=== PATIENT | male | born 1955 | race African-American/Black ===

== ENCOUNTER 2018-12-13 13:02 | Inpatient (IN) ==
[2018-12-13] MEDS ORDERED: ACETAMINOPHEN 325 MG TABLET PO PRN (15:51)
[2018-12-13] MEDS ORDERED: LACTULOSE 20 GM/30 ML UDCUP PO PRN (15:51)
[2018-12-13 16:05] LABS: Basophils % 0.2 % (0.0-0.8); Eosinophils # 0.1 10*3/uL (0.0-0.87); Eosinophils % 0.9 % (0.00-10.9); Hematocrit 34.7 VOL% (42.0-52.0); Immature Granulocytes % 0.4 %; Immature Granulocytes Absolute 0.02 #; Lymphocytes # 1.5 10*3/uL (1.4-4.0); Lymphocytes % 28.6 % (21.2-54.2); Mean Corpuscular HGB Conc 31.7 GM/DL (32-36); Mean Corpuscular Volume 81.6 FL (87-102); Mean Platelet Volume 10.7 FL (9.6-12.0); Neutrophils % 59.9 % (38.7-73.9); Platelet Count 305 T/CUMM (130-400); Red Blood Count 4.25 MC/CUMM (3.8-5.5); Red Cell Distribution Width 18.7 % (9.3-17.3); White Blood Count 5.4 T/CUMM (4-12)
[2018-12-13 16:17] LABS: Apearance,Urine CLEAR (Clear); Bilirubin,Urine Negative (Negative); Blood, Urine Negative (Negative); Glucose,Urine (UA) Negative (Negative); Ketones,Urine Negative (Negative); Mucus,Urine Occasional /LPF (Occasional); Nitrite,Urine Negative (Negative); Protein,Urine Negative; Urine Color Yellow (Yellow); Urine Specific Gravity 1.011 (1.001-1.035); Urine Urobilinogen < 2.0 EU/DL (0.2-1.0); WBC,Urine <1 /HPF (0-6)
[2018-12-13] MEDS ORDERED: DEXTROSE 50% 25 GM/50 ML VIAL IV PRN ×2 (16:17→19:03)
[2018-12-13] MEDS ORDERED: GLUCAGON 1 MG VIAL IM PRN (16:17)
[2018-12-13 16:24] LABS: Calcium 9.3 MG/DL (8.5-10.1); Osmolality,Calculated 278.4 MOS/KG (273-304); Risk Ratio 3.65; Thyroid Stimulating Hormone 1.37 uIU/ml (0.358-3.74); VLDL CHOLESTEROL 19.4 MG/DL
[2018-12-13] MEDS ORDERED: ENOXAPARIN 40 MG/0.4 ML SYRINGE SUBCUT SCH (17:30)
[2018-12-13] MEDS ORDERED: ONDANSETRON 4 MG/2 ML VIAL IV PRN (19:03)
[2018-12-13] MEDS: PENICILLIN G POTASSIUM INJ 4,000,000 UNIT in SODIUM CHLORIDE 0.9% 100 ML IV SCH ×2 (20:37→22:29)
[2018-12-13] MEDS: SODIUM CHLORIDE 0.9% 1,000 ML IV SCH (21:09)
[2018-12-13] MEDS: INSULIN LISPRO 100 UNIT/ML SUBCUT SCH ×3 (21:16→22:37)
[2018-12-14] MEDS: PENICILLIN G POTASSIUM INJ 4,000,000 UNIT in SODIUM CHLORIDE 0.9% 100 ML IV SCH ×6 (02:33→21:46)
[2018-12-14 05:25] LABS: Basophils % 0.1 % (0.0-0.8); Eosinophils # 0.1 10*3/uL (0.0-0.87); Hematocrit 33.1 VOL% (42.0-52.0); Hemoglobin 10.6 GM/DL (14.0-18.0); Immature Granulocytes % 0.6 %; Immature Granulocytes Absolute 0.04 #; Lymphocytes # 0.9 10*3/uL (1.4-4.0); Lymphocytes % 12.2 % (21.2-54.2); Mean Corpuscular Volume 80.9 FL (87-102); Mean Platelet Volume 10.2 FL (9.6-12.0); Monocytes % 9.7 % (1.7-12.7); Neutrophils % 76.4 % (38.7-73.9); Platelet Count 255 T/CUMM (130-400); Red Blood Count 4.09 MC/CUMM (3.8-5.5); Red Cell Distribution Width 18.4 % (9.3-17.3); White Blood Count 7.2 T/CUMM (4-12)
[2018-12-14 05:52] LABS: Albumin 3.3 G/DL (3.4-5.0); Bilirubin,Total 0.7 MG/DL (0.2-1.0); Calcium 8.8 MG/DL (8.5-10.1); Osmolality,Calculated 288.7 MOS/KG (273-304); Total Protein 7.4 G/DL (6.4-8.3)
[2018-12-14] MEDS: INSULIN LISPRO 100 UNIT/ML SUBCUT SCH ×6 (08:30→21:52)
[2018-12-14] MEDS ORDERED: INSULIN GLARGINE 100 UNIT/ML SUBCUT SCH (09:00)
[2018-12-14 09:13] LABS: Lymphocytes,CSF 72 %; Monocytes,CSF 13 %; Neutrophils,CSF 15 %; Red Blood Cell,CSF < 1 C/CUMM; White Blood Cell,CSF 117 C/CUMM
[2018-12-14 09:14] LABS: Appearance,CSF Clear
[2018-12-14 09:16] LABS: Glucose,CSF 45 MG/DL (40-70)
[2018-12-14] MEDS ORDERED: DEXTROSE 50% 25 GM/50 ML VIAL IV PRN (10:56)
[2018-12-14] MEDS: predniSONE 5 MG TABLET PO SCH (12:25)
[2018-12-14] MEDS: CETIRIZINE 10 MG TABLET PO SCH (12:26)
[2018-12-14] MEDS: PANTOPRAZOLE 40 MG TABLET PO SCH (12:26)
[2018-12-14 12:57] LABS: HIV Antigen/Antibody Result Nonreactive (Nonreactive)
[2018-12-14] MEDS: SODIUM CHLORIDE 0.9% 1,000 ML IV SCH (15:43)
[2018-12-15] MEDS: PENICILLIN G POTASSIUM INJ 4,000,000 UNIT in SODIUM CHLORIDE 0.9% 100 ML IV SCH ×6 (02:12→22:32)
[2018-12-15] MEDS: SODIUM CHLORIDE 0.9% 1,000 ML IV SCH ×2 (07:14→16:18)
[2018-12-15] MEDS: INSULIN LISPRO 100 UNIT/ML SUBCUT SCH ×4 (07:40→21:05)
[2018-12-15] MEDS: PANTOPRAZOLE 40 MG TABLET PO SCH (10:16)
[2018-12-15] MEDS: CETIRIZINE 10 MG TABLET PO SCH (10:16)
[2018-12-15] MEDS: INSULIN GLARGINE 100 UNIT/ML SUBCUT SCH (10:17)
[2018-12-15] MEDS: predniSONE 5 MG TABLET PO SCH (10:18)
[2018-12-15 13:36] LABS: CMV PCR Source CSF; Epstein-Barr Virus Result Negative (Negative); Epstein-Barr Virus Source CSF; Specimen Source CSF
[2018-12-15 15:06] LABS: VDRL Spinal Fluid Positive (Negative)
[2018-12-15] MEDS: GABAPENTIN 100 MG CAPSULE PO SCH (21:04)
[2018-12-16] MEDS: PENICILLIN G POTASSIUM INJ 4,000,000 UNIT in SODIUM CHLORIDE 0.9% 100 ML IV SCH ×6 (02:50→23:45)
[2018-12-16] MEDS: SODIUM CHLORIDE 0.9% 1,000 ML IV SCH ×2 (05:54→10:34)
[2018-12-16 08:29] LABS: Basophils % 0.3 % (0.0-0.8); Eosinophils # 0.1 10*3/uL (0.0-0.87); Eosinophils % 3.1 % (0.00-10.9); Hematocrit 34.6 VOL% (42.0-52.0); Hemoglobin 10.9 GM/DL (14.0-18.0); Immature Granulocytes % 0.3 %; Immature Granulocytes Absolute 0.01 #; Lymphocytes # 1.2 10*3/uL (1.4-4.0); Mean Corpuscular HGB Conc 31.5 GM/DL (32-36); Mean Corpuscular Volume 81.8 FL (87-102); Mean Platelet Volume 9.3 FL (9.6-12.0); Monocytes % 10.7 % (1.7-12.7); Neutrophils % 50.6 % (38.7-73.9); Platelet Count 240 T/CUMM (130-400); Red Blood Count 4.23 MC/CUMM (3.8-5.5); Red Cell Distribution Width 18.2 % (9.3-17.3); White Blood Count 3.5 T/CUMM (4-12)
[2018-12-16 08:49] LABS: Calcium 9.1 MG/DL (8.5-10.1); Osmolality,Calculated 282.8 MOS/KG (273-304)
[2018-12-16] MEDS: INSULIN LISPRO 100 UNIT/ML SUBCUT SCH ×4 (08:57→20:54)
[2018-12-16] MEDS: INSULIN GLARGINE 100 UNIT/ML SUBCUT SCH (09:36)
[2018-12-16] MEDS: GABAPENTIN 100 MG CAPSULE PO SCH ×2 (09:36→20:55)
[2018-12-16] MEDS: predniSONE 5 MG TABLET PO SCH (09:37)
[2018-12-16] MEDS: CETIRIZINE 10 MG TABLET PO SCH (09:37)
[2018-12-16] MEDS: PANTOPRAZOLE 40 MG TABLET PO SCH (09:37)
[2018-12-17] MEDS: SODIUM CHLORIDE 0.9% 1,000 ML IV SCH ×3 (01:25→17:12)
[2018-12-17] MEDS: PENICILLIN G POTASSIUM INJ 4,000,000 UNIT in SODIUM CHLORIDE 0.9% 100 ML IV SCH ×6 (03:14→21:32)
[2018-12-17] MEDS: INSULIN GLARGINE 100 UNIT/ML SUBCUT SCH (09:18)
[2018-12-17] MEDS: CETIRIZINE 10 MG TABLET PO SCH (09:19)
[2018-12-17] MEDS: predniSONE 5 MG TABLET PO SCH (09:19)
[2018-12-17] MEDS: GABAPENTIN 100 MG CAPSULE PO SCH ×2 (09:19→21:31)
[2018-12-17] MEDS: PANTOPRAZOLE 40 MG TABLET PO SCH (09:20)
[2018-12-17] MEDS: INSULIN LISPRO 100 UNIT/ML SUBCUT SCH ×4 (09:21→21:35)
[2018-12-17] MEDS: LACTOBACILLUS ACIDOPHILUS/BULGARICUS CAPLET PO SCH (11:43)
[2018-12-17 14:16] LABS: M. Tuberculosis PCR Result Negative (Negative); M. Tuberculosis PCR Source CSF
[2018-12-18] MEDS: PENICILLIN G POTASSIUM INJ 4,000,000 UNIT in SODIUM CHLORIDE 0.9% 100 ML IV SCH ×6 (01:15→23:04)
[2018-12-18 04:46] LABS: Basophils % 0.7 % (0.0-0.8); Eosinophils # 0.2 10*3/uL (0.0-0.87); Eosinophils % 3.5 % (0.00-10.9); Immature Granulocytes % 0.2 %; Immature Granulocytes Absolute 0.01 #; Lymphocytes # 1.7 10*3/uL (1.4-4.0); Mean Corpuscular HGB Conc 31.3 GM/DL (32-36); Mean Corpuscular Volume 81.4 FL (87-102); Mean Platelet Volume 9.9 FL (9.6-12.0); Monocytes % 9.6 % (1.7-12.7); Platelet Count 232 T/CUMM (130-400); Red Blood Count 3.93 MC/CUMM (3.8-5.5); Red Cell Distribution Width 17.6 % (9.3-17.3); White Blood Count 4.6 T/CUMM (4-12)
[2018-12-18 05:14] LABS: Calcium 8.8 MG/DL (8.5-10.1); Osmolality,Calculated 285.7 MOS/KG (273-304)
[2018-12-18] MEDS: INSULIN LISPRO 100 UNIT/ML SUBCUT SCH ×4 (07:36→21:10)
[2018-12-18] MEDS ORDERED: CALAMINE LOTION 180 ML BOTTLE TOP PRN (08:45)
[2018-12-18] MEDS: INSULIN GLARGINE 100 UNIT/ML SUBCUT SCH (09:36)
[2018-12-18] MEDS: predniSONE 5 MG TABLET PO SCH (09:37)
[2018-12-18] MEDS: GABAPENTIN 100 MG CAPSULE PO SCH ×2 (09:37→21:09)
[2018-12-18] MEDS: CETIRIZINE 10 MG TABLET PO SCH (09:38)
[2018-12-18] MEDS: LACTOBACILLUS ACIDOPHILUS/BULGARICUS CAPLET PO SCH (09:38)
[2018-12-18] MEDS: PANTOPRAZOLE 40 MG TABLET PO SCH (09:38)
[2018-12-18] MEDS: SODIUM CHLORIDE 0.9% 1,000 ML IV SCH (09:39)
[2018-12-19] MEDS: SODIUM CHLORIDE 0.9% 1,000 ML IV SCH ×3 (00:48→17:46)
[2018-12-19] MEDS: PENICILLIN G POTASSIUM INJ 4,000,000 UNIT in SODIUM CHLORIDE 0.9% 100 ML IV SCH ×6 (03:34→22:51)
[2018-12-19 04:26] LABS: Basophils % 0.5 % (0.0-0.8); Eosinophils # 0.2 10*3/uL (0.0-0.87); Eosinophils % 4.1 % (0.00-10.9); Hematocrit 31.6 VOL% (42.0-52.0); Immature Granulocytes % 0.2 %; Immature Granulocytes Absolute 0.01 #; Lymphocytes # 1.9 10*3/uL (1.4-4.0); Mean Corpuscular HGB Conc 31.6 GM/DL (32-36); Mean Corpuscular Volume 81.2 FL (87-102); Mean Platelet Volume 9.9 FL (9.6-12.0); Monocytes % 9.1 % (1.7-12.7); Neutrophils % 53.1 % (38.7-73.9); Platelet Count 232 T/CUMM (130-400); Red Blood Count 3.89 MC/CUMM (3.8-5.5); Red Cell Distribution Width 17.7 % (9.3-17.3); White Blood Count 5.6 T/CUMM (4-12)
[2018-12-19 04:52] LABS: Calcium 8.4 MG/DL (8.5-10.1); Osmolality,Calculated 281.1 MOS/KG (273-304)
[2018-12-19] MEDS: INSULIN LISPRO 100 UNIT/ML SUBCUT SCH ×4 (07:40→20:20)
[2018-12-19] MEDS: predniSONE 5 MG TABLET PO SCH (09:38)
[2018-12-19] MEDS: GABAPENTIN 100 MG CAPSULE PO SCH ×2 (09:38→20:24)
[2018-12-19] MEDS: CETIRIZINE 10 MG TABLET PO SCH (09:39)
[2018-12-19] MEDS: PANTOPRAZOLE 40 MG TABLET PO SCH (09:39)
[2018-12-19] MEDS: LACTOBACILLUS ACIDOPHILUS/BULGARICUS CAPLET PO SCH (09:39)
[2018-12-19] MEDS: INSULIN GLARGINE 100 UNIT/ML SUBCUT SCH (09:43)
[2018-12-20] MEDS: SODIUM CHLORIDE 0.9% 1,000 ML IV SCH ×3 (01:14→17:09)
[2018-12-20] MEDS: PENICILLIN G POTASSIUM INJ 4,000,000 UNIT in SODIUM CHLORIDE 0.9% 100 ML IV SCH ×6 (02:00→23:34)
[2018-12-20] MEDS: INSULIN LISPRO 100 UNIT/ML SUBCUT SCH ×4 (08:21→20:56)
[2018-12-20] MEDS: INSULIN GLARGINE 100 UNIT/ML SUBCUT SCH (08:21)
[2018-12-20] MEDS: GABAPENTIN 100 MG CAPSULE PO SCH ×2 (08:22→20:56)
[2018-12-20] MEDS: LACTOBACILLUS ACIDOPHILUS/BULGARICUS CAPLET PO SCH (08:40)
[2018-12-20] MEDS: predniSONE 5 MG TABLET PO SCH (08:40)
[2018-12-20] MEDS: PANTOPRAZOLE 40 MG TABLET PO SCH (08:40)
[2018-12-20] MEDS: CETIRIZINE 10 MG TABLET PO SCH (08:40)
[2018-12-21] MEDS: SODIUM CHLORIDE 0.9% 1,000 ML IV SCH ×3 (03:27→17:48)
[2018-12-21] MEDS: PENICILLIN G POTASSIUM INJ 4,000,000 UNIT in SODIUM CHLORIDE 0.9% 100 ML IV SCH ×6 (03:28→21:43)
[2018-12-21] MEDS: INSULIN LISPRO 100 UNIT/ML SUBCUT SCH ×4 (07:15→21:47)
[2018-12-21] MEDS: INSULIN GLARGINE 100 UNIT/ML SUBCUT SCH (08:17)
[2018-12-21] MEDS: predniSONE 5 MG TABLET PO SCH (08:18)
[2018-12-21] MEDS: GABAPENTIN 100 MG CAPSULE PO SCH ×2 (08:18→21:45)
[2018-12-21] MEDS: LACTOBACILLUS ACIDOPHILUS/BULGARICUS CAPLET PO SCH (08:19)
[2018-12-21] MEDS: PANTOPRAZOLE 40 MG TABLET PO SCH (08:19)
[2018-12-21] MEDS: CETIRIZINE 10 MG TABLET PO SCH (08:19)
[2018-12-21 19:41] LABS: West Nile Virus Ab, IgG, CSF Negative (Negative); West Nile Virus Ab, IgM, CSF Negative (Negative)
[2018-12-22] MEDS: PENICILLIN G POTASSIUM INJ 4,000,000 UNIT in SODIUM CHLORIDE 0.9% 100 ML IV SCH ×6 (02:58→21:56)
[2018-12-22] MEDS: SODIUM CHLORIDE 0.9% 1,000 ML IV SCH ×2 (07:24→21:56)
[2018-12-22] MEDS: INSULIN LISPRO 100 UNIT/ML SUBCUT SCH ×4 (08:30→21:34)
[2018-12-22] MEDS: INSULIN GLARGINE 100 UNIT/ML SUBCUT SCH (08:39)
[2018-12-22] MEDS: LACTOBACILLUS ACIDOPHILUS/BULGARICUS CAPLET PO SCH (08:39)
[2018-12-22] MEDS: GABAPENTIN 100 MG CAPSULE PO SCH ×2 (08:39→21:56)
[2018-12-22] MEDS: predniSONE 5 MG TABLET PO SCH (08:40)
[2018-12-22] MEDS: PANTOPRAZOLE 40 MG TABLET PO SCH (08:40)
[2018-12-22] MEDS: CETIRIZINE 10 MG TABLET PO SCH (08:40)
[2018-12-23] MEDS: PENICILLIN G POTASSIUM INJ 4,000,000 UNIT in SODIUM CHLORIDE 0.9% 100 ML IV SCH ×6 (01:49→22:13)
[2018-12-23] MEDS: INSULIN LISPRO 100 UNIT/ML SUBCUT SCH ×4 (07:43→21:47)
[2018-12-23] MEDS: INSULIN GLARGINE 100 UNIT/ML SUBCUT SCH (09:16)
[2018-12-23] MEDS: CETIRIZINE 10 MG TABLET PO SCH (09:19)
[2018-12-23] MEDS: PANTOPRAZOLE 40 MG TABLET PO SCH (09:19)
[2018-12-23] MEDS: LACTOBACILLUS ACIDOPHILUS/BULGARICUS CAPLET PO SCH (09:19)
[2018-12-23] MEDS: predniSONE 5 MG TABLET PO SCH (09:19)
[2018-12-23] MEDS: GABAPENTIN 100 MG CAPSULE PO SCH ×2 (09:19→21:43)
[2018-12-23] MEDS: SODIUM CHLORIDE 0.9% 1,000 ML IV SCH (14:05)
[2018-12-24] MEDS: PENICILLIN G POTASSIUM INJ 4,000,000 UNIT in SODIUM CHLORIDE 0.9% 100 ML IV SCH ×6 (02:01→21:58)
[2018-12-24] MEDS: SODIUM CHLORIDE 0.9% 1,000 ML IV SCH (06:55)
[2018-12-24] MEDS: INSULIN LISPRO 100 UNIT/ML SUBCUT SCH ×4 (07:50→21:58)
[2018-12-24] MEDS: LACTOBACILLUS ACIDOPHILUS/BULGARICUS CAPLET PO SCH (08:54)
[2018-12-24] MEDS: CETIRIZINE 10 MG TABLET PO SCH (08:54)
[2018-12-24] MEDS: PANTOPRAZOLE 40 MG TABLET PO SCH (08:55)
[2018-12-24] MEDS: predniSONE 5 MG TABLET PO SCH (08:55)
[2018-12-24] MEDS: GABAPENTIN 100 MG CAPSULE PO SCH ×2 (08:55→21:58)
[2018-12-24] MEDS: INSULIN GLARGINE 100 UNIT/ML SUBCUT SCH (09:25)
[2018-12-25] MEDS: PENICILLIN G POTASSIUM INJ 4,000,000 UNIT in SODIUM CHLORIDE 0.9% 100 ML IV SCH ×6 (02:19→22:03)
[2018-12-25] MEDS: INSULIN LISPRO 100 UNIT/ML SUBCUT SCH ×4 (08:14→21:00)
[2018-12-25] MEDS: CETIRIZINE 10 MG TABLET PO SCH (09:10)
[2018-12-25] MEDS: LACTOBACILLUS ACIDOPHILUS/BULGARICUS CAPLET PO SCH (09:10)
[2018-12-25] MEDS: predniSONE 5 MG TABLET PO SCH (09:10)
[2018-12-25] MEDS: PANTOPRAZOLE 40 MG TABLET PO SCH (09:10)
[2018-12-25] MEDS: GABAPENTIN 100 MG CAPSULE PO SCH ×2 (09:10→20:48)
[2018-12-25] MEDS: INSULIN GLARGINE 100 UNIT/ML SUBCUT SCH (09:11)
[2018-12-26] MEDS: PENICILLIN G POTASSIUM INJ 4,000,000 UNIT in SODIUM CHLORIDE 0.9% 100 ML IV SCH ×6 (02:46→21:58)
[2018-12-26] MEDS: INSULIN LISPRO 100 UNIT/ML SUBCUT SCH ×4 (08:01→20:53)
[2018-12-26] MEDS: INSULIN GLARGINE 100 UNIT/ML SUBCUT SCH (08:06)
[2018-12-26] MEDS: LACTOBACILLUS ACIDOPHILUS/BULGARICUS CAPLET PO SCH (08:55)
[2018-12-26] MEDS: CETIRIZINE 10 MG TABLET PO SCH (08:55)
[2018-12-26] MEDS: predniSONE 5 MG TABLET PO SCH (08:55)
[2018-12-26] MEDS: GABAPENTIN 100 MG CAPSULE PO SCH ×2 (08:55→20:53)
[2018-12-26] MEDS: PANTOPRAZOLE 40 MG TABLET PO SCH (08:55)
[2018-12-27] MEDS: PENICILLIN G POTASSIUM INJ 4,000,000 UNIT in SODIUM CHLORIDE 0.9% 100 ML IV SCH ×4 (02:00→14:33)
[2018-12-27] MEDS: LACTOBACILLUS ACIDOPHILUS/BULGARICUS CAPLET PO SCH (08:12)
[2018-12-27] MEDS: GABAPENTIN 100 MG CAPSULE PO SCH (08:12)
[2018-12-27] MEDS: INSULIN LISPRO 100 UNIT/ML SUBCUT SCH ×2 (08:12→12:30)
[2018-12-27] MEDS: predniSONE 5 MG TABLET PO SCH (08:13)
[2018-12-27] MEDS: CETIRIZINE 10 MG TABLET PO SCH (08:13)
[2018-12-27] MEDS: PANTOPRAZOLE 40 MG TABLET PO SCH (08:14)
[2018-12-27] MEDS: INSULIN GLARGINE 100 UNIT/ML SUBCUT SCH (08:14)
[2018-12-27 11:25] VITALS: BP 169/77
== END 2018-12-27 15:49 | disposition home or self-care (01) | DRG 57 ==
LOC: N.ED 13:02 → N.EDINP 15:51 → SUATTDRO 15:51 → N.3E 18:07 → N.EDINP 19:02 → N.3E 21:18
PROVIDERS: ADMIT Internal Medicine; ATTEND Internal Medicine